=== PATIENT | female | born 1990 | race Caucasian/White ===

== ENCOUNTER 2021-05-28 04:04 | Emergency (ER) | payer OTHER ==
[~2021-05-28] VITALS: Ht 165.1 cm; Wt 59.0 kg
--- NOTE | 2021-05-28 04:25 | NUR ---
Patient arrived at the ER with c/o of dysuria, back and abd pain x 3 days. Patient went to uregnt care 2 days ago and was given Bactrim for UTI. Pain still present and patient has a fever.
--- NOTE | 2021-05-28 04:30 | NUR ---
Dr. Arora at bedside for MSE.
[2021-05-28 04:33] LABS: *BILIRUBIN,URIN 1+ (NEGATIVE); *BLOOD, URINE 2+ (NEGATIVE); *COLOR,URINE Orange (YELLOW); *KETONES,URINE 1+ (NEGATIVE); LEUKOCYTE ESTERASE ,URINE TRACE (NEGATIVE); UGLUCOSE TRACE (NEGATIVE)
[2021-05-28 04:41] LABS: HEMATOCRIT 37.7 % (31.2-41.9); MEAN CORPUSCULAR HEMOGLOBIN 30.8 uug (24.7-32.8); MEAN CORPUSCULAR VOLUME 90.8 fL (75.5-95.3); PLATELET COUNT (AUTO) 245 K/uL (179-408)
[2021-05-28 04:41] LABS: *CLARITY,URINE HAZY (CLEAR); NITRITE, URINE NEGATIVE (NEGATIVE)
[2021-05-28 04:42] LABS: *URINE HCG, QUAL NEGATIVE (NEGATIVE); BACTERIA,URINE FEW /HPF (NONE SEEN); SQUAMOUS EPITHELIAL CELL,UR MODERATE /HPF (NONE SEEN)
[2021-05-28 04:44] LABS: CREATININE 0.9 mg/dL (0.6-1.3)
[2021-05-28] MEDS ORDERED: ACETAMINOPHEN 325 MG TABLET ONE (04:49)
[2021-05-28 04:50] LABS: BILIRUBIN,DIRECT 0.1 mg/dL (0.0-0.2); BILIRUBIN,TOTAL 0.3 mg/dL (0.2-1.0); TOTAL PROTEIN, SERUM 8.3 g/dL (6.4-8.2)
[2021-05-28] MEDS ORDERED: DOXYCYCLINE HYCLATE 100 MG TABLET ONE (04:53)
[2021-05-28] MEDS ORDERED: CEFTRIAXONE 500 MG VIAL ONE (04:54)
[2021-05-28] MEDS ORDERED: LIDOCAINE HCL 1% 20 ML VIAL ONE (04:55)
[2021-05-28] MEDS: DOXYCYCLINE HYCLATE 100 MG TABLET PO ONE (04:57)
[2021-05-28] MEDS: IV NORMAL SALINE 1000 ML BAG IV ONE (04:57)
[2021-05-28] MEDS: CEFTRIAXONE 500 MG VIAL IM ONE (04:57)
[2021-05-28] MEDS: ACETAMINOPHEN 650 MG/20.3 ML LIQUID UDC PO ONE (04:58)
[2021-05-28] MEDS: METRONIDAZOLE 500 MG TABLET PO ONE (05:03)
[2021-05-28] MEDS ORDERED: METRONIDAZOLE 500 MG TABLET ONE (05:08)
--- NOTE | 2021-05-28 05:19 | NUR ---
Patient taken to CT via transport.
--- NOTE | 2021-05-28 05:29 | NUR ---
Back from CT.
--- NOTE | 2021-05-28 05:34 | NUR ---
Cooling measures provided. Pt now afebrile. Latest temp 98.4 orally.
[2021-05-28] MEDS: CEFTRIAXONE 1 G in IV DEXTROSE 5% 50 ML IV ONE (05:52)
[2021-05-28] MEDS ORDERED: CEFTRIAXONE /D5W 50ML IVPB **ER PYXIS IV ONE (05:55)
[2021-05-28] MEDS ORDERED: CEFD300C3 PO (06:14)
[2021-05-28] MEDS ORDERED: DOXY-326 PO (06:14)
--- NOTE | 2021-05-28 07:10 | NUR ---
SBAR report given to day shift LEN Rabago.
--- NOTE | 2021-05-28 07:11 | NUR ---
Received pt in bed , resting comfortably.
--- NOTE | 2021-05-28 07:50 | NUR ---
Pt awake,A/O x4. Denies pain. Walked to bathroom w/ steady gait. Awaiting U/S.
--- NOTE | 2021-05-28 08:56 | NUR ---
Dr Coronado at the bedside re evaluating the pt.
--- NOTE | 2021-05-28 10:01 | NUR ---
IV removed. Catheter intact and site benign. Pressure and 4x4 gauze applied to site. No bleeding noted.
--- NOTE | 2021-05-28 10:09 | NUR ---
Female professor sculpture accompanied female patient for (Dr Coronado).
[2021-05-28] MEDS ORDERED: HYDR-4209 PO (10:26)
[2021-05-28] MEDS ORDERED: MUPI22OI2 TP (10:26)
[2021-05-28] MEDS ORDERED: SULF1TAB48 PO (10:26)
[2021-05-28] MEDS: AZITHROMYCIN 250 MG TABLET PO ONE (10:26)
[2021-05-28] MEDS ORDERED: AZITHROMYCIN 250 MG TABLET ONE (10:30)
--- NOTE | 2021-05-28 10:32 | NUR ---
Patient discharged to home in stable condition. Written and verbal after care instructions given. Patient verbalizes understanding of instructions. Stressed follow up or return to ER for worsening s/s.
[2021-05-28 10:33] VITALS: BP 112/59
[2021-05-29] MEDS ORDERED: IBUP-1955 PO (12:38)
[2021-05-29] MEDS ORDERED: CIPR500T5 PO (12:38)
--- NOTE | 2021-05-30 11:13 | NUR ---
I called the patient to see how she was feeling. Patient is feeling better, however she was seen at the emergency department yesterday and her antibiotics were switched to Cipro to cover her folliculitis most likely caused by Pseudomonas given the new data history that she had also been in a hot tub.
== END 2021-05-28 10:35 | disposition home or self-care (01) ==
LOC: ER 04:10
DX: R50.9 Fever, unspecified (principal); L73.9 Follicular disorder, unspecified; J02.8 Acute pharyngitis due to other specified organisms; Z20.822 Contact with and (suspected) exposure to COVID-19; Z82.49 Family history of ischemic heart disease and other diseases of the circulatory system; D25.9 Leiomyoma of uterus, unspecified; N12 Tubulo-interstitial nephritis, not specified as acute or chronic; N89.8 Other specified noninflammatory disorders of vagina
CPT/HCPCS: 36415; 74176; 76856; 80048; 80076; 81001; 83605; 83690; 84703; 85025; 86403; 87070 ×2; 87081; 87086; 87110; 87210; 87426; 96361; 96365; 96372; 99285; J0696 ×2; J3490; A4663; J7030; Q0144

== ENCOUNTER 2021-05-29 11:45 | Emergency (ER) | payer OTHER ==
[~2021-05-29] VITALS: Ht 172.7 cm; Wt 59.0 kg
[~2021-05-29 11:45] MED LIST: HYDR-4209 PO; MUPI22OI2 TP; SULF1TAB48 PO
--- NOTE | 2021-05-29 11:57 | NUR ---
[email or web address], medical screening exam in progress
[2021-05-29 12:27] LABS: *URINE HCG, QUAL NEG (NEGATIVE)
[2021-05-29 12:28] LABS: *BILIRUBIN,URIN 1+ (NEGATIVE); *BLOOD, URINE 2+ (NEGATIVE); *CLARITY,URINE TURBID (CLEAR); *COLOR,URINE YELLOW (YELLOW); *KETONES,URINE 3+ (NEGATIVE); *UROBILINOGEN,URINE 0.2 E.U./dl (NORMAL); LEUKOCYTE ESTERASE ,URINE 3+ (NEGATIVE); NITRITE, URINE NEGATIVE (NEGATIVE); UGLUCOSE NEGATIVE (NEGATIVE)
[2021-05-29] MEDS ORDERED: LIDOCAINE/PRILOCAINE 5 GM CREAM.GM. ONE ×2 (12:28→12:34)
[2021-05-29] MEDS ORDERED: CIPROFLOXACIN HCL 250 MG TABLET PO ONE (12:30)
[2021-05-29] MEDS ORDERED: DOSING BY PHARMACY-MD TO SPECIFY MED/ROUTE XX PRN (12:30)
[2021-05-29] MEDS ORDERED: IBUPROFEN 600 MG TABLET PO ONE (12:30)
[2021-05-29] MEDS ORDERED: CIPR500T5 PO (12:38)
[2021-05-29] MEDS ORDERED: IBUP-1955 PO (12:38)
--- NOTE | 2021-05-29 12:53 | NUR ---
Patient discharged to home in stable condition with brisk steady gait. Written and verbal after care instructions given to patient. Patient verbalized understanding and compliance of instructions. Stressed follow up with primary doctor and customer business manager or return to ER for worsening s/s.
[2021-05-29 14:14] LABS: WBC,URINE TNTC /HPF (0-3)
[2021-05-29 14:15] LABS: BACTERIA,URINE MODERATE /HPF (NONE SEEN); SQUAMOUS EPITHELIAL CELL,UR MANY /HPF (NONE SEEN)
== END 2021-05-29 12:53 | disposition home or self-care (01) ==
LOC: ER 11:45
DX: L73.8 Other specified follicular disorders (principal); B96.5 Pseudomonas (aeruginosa) (mallei) (pseudomallei) as the cause of diseases classified elsewhere; R82.81 Pyuria
CPT/HCPCS: 84703; 87086; A4663

== ENCOUNTER 2021-05-30 23:22 | Emergency (ER) | payer OTHER ==
[~2021-05-30] VITALS: Ht 165.1 cm; Wt 59.0 kg
[~2021-05-30 23:22] MED LIST changes: +CIPR500T5 PO; +IBUP-1955 PO
--- NOTE | 2021-05-31 00:32 | NUR ---
Edward with Dr Gonzalez obtained vaginal viral swab x 2. Labled with patient,on ice to lab.
[2021-05-31] MEDS ORDERED: PRED50TA PO (00:37)
[2021-05-31] MEDS ORDERED: VALA10002 PO (00:37)
[2021-05-31] MEDS ORDERED: LIDOCAINE/PRILOCAINE 5 GM CREAM.GM. ONE ×2 (00:40→00:46)
--- NOTE | 2021-05-31 00:47 | NUR ---
Reviewed After visit summary with patient ,prescriptions given with written instructions patient able to verbalize instructions.
[2021-05-31 00:50] VITALS: BP 122/70
== END 2021-05-31 00:57 | disposition home or self-care (01) ==
LOC: ER 23:25
DX: B00.9 Herpesviral infection, unspecified (principal); Z87.440 Personal history of urinary (tract) infections
CPT/HCPCS: A4663